=== PATIENT | female | born 1970 | race Caucasian/White ===

== ENCOUNTER → 2017-11-04 15:19 | Outpatient (CLI) | payer BC, SELFPAY ==
[2017-11-04 16:35] LABS: Hemoglobin A1c 6.1 % (4.2-6.3)
[2017-11-04 16:36] LABS: Thyroid Stim Hormone (TSH) 2.85 uIU/mL (0.358-3.74)
== END ==
PROVIDERS: Family Provider Internal Medicine; PCP Internal Medicine; Visit Provider Clinical Nurse Specialist
DX: R73.09 Other abnormal glucose (principal); R63.5 Abnormal weight gain
CPT/HCPCS: 36415; 83036; 84443

== ENCOUNTER → 2017-11-30 12:25 | Outpatient (CLI) | payer OTHER, SELFPAY ==
--- NOTE | 2017-11-30 12:31 | HPBI_ITS ---
MAMMOGRAPHY - BILATERAL SCREENING REASON FOR EXAM: Female, 47 years old. Routine annual screening examination. PERTINENT HISTORY: Aunt with breast cancer. TECHNIQUE: Digital bilateral breast jane (3D mammographic acquisition) in the CC and MLO projections. 2-D mediolateral oblique (MLO) and craniocaudad (CC) views of both breasts were obtained. CAD: Full Field Digital Mammography with Computer Added Detection was performed. COMPARISON: No comparison mammograms available at this time. If any prior films become available, an addendum to this report can be generated. FINDINGS: Breast Composition: There are scattered areas of fibroglandular density. There are no dominant masses or suspicious calcifications. No other significant abnormalities are identified. HPBI/SCREENING MAMM (CAD), BILAT IMPRESSION: Negative screening mammogram. Yearly followup mammogram recommended. (A) ASSESSMENT CATEGORY: BIRADS Category 1: Negative. A letter regarding these results will be sent to the patient by the facility within 30 days. Approximately 10% of breast cancers are not detected by mammography. A normal mammogram should not delay biopsy of a clinically suspicious abnormality. [id number] Electronically Signed: Tom Pena MD at 20:13 EST Tel [phone], Service support ,
== END ==
PROVIDERS: Family Provider Internal Medicine; PCP Internal Medicine; Visit Provider Internal Medicine
DX: Z12.31 Encounter for screening mammogram for malignant neoplasm of breast (principal)
CPT/HCPCS: 77063; 77067

== ENCOUNTER → 2018-07-08 09:14 | Outpatient (CLI) | payer OTHER, SELFPAY ==
[2018-07-08 10:31] LABS: Hemoglobin A1c 6.2 % (4.2-6.3)
[2018-07-08 10:37] LABS: Anion Gap 6 (5-15); BUN 10 mg/dL (7-18); BUN/Creat Ratio 13.5 RATIO (10-20); Calcium,Total 8.5 mg/dL (8.5-10.1); Chloride 104 mmol/L (98-107); Creatinine, Serum 0.74 mg/dL (0.55-1.02); EST Glomerular Filtration Rate 90 mL/min (>60); Est Glom Filt Rate - Afr Amer 108 mL/min (>60); Glucose 101 mg/dL (74-106); Potassium 3.6 mmol/L (3.5-5.1); Sodium Level 140 mmol/L (136-145)
== END ==
PROVIDERS: Family Provider Internal Medicine; PCP Internal Medicine; Referring Provider Internal Medicine; Visit Provider Internal Medicine
DX: R73.01 Impaired fasting glucose (principal); E28.2 Polycystic ovarian syndrome; I10 Essential (primary) hypertension
CPT/HCPCS: 36415; 80048; 83036

== ENCOUNTER → 2018-08-18 20:13 | Outpatient (CLI) | payer OTHER, SELFPAY | PROVIDERS: Family Provider Internal Medicine; PCP Internal Medicine; Visit Provider Internal Medicine | DX: G47.30 Sleep apnea, unspecified (principal); G47.10 Hypersomnia, unspecified; E66.9 Obesity, unspecified | CPT/HCPCS: 95811 ==

== ENCOUNTER → 2018-11-14 20:16 | Outpatient (CLI) | payer OTHER, SELFPAY | PROVIDERS: Family Provider Internal Medicine; PCP Internal Medicine; Referring Provider Internal Medicine; Visit Provider Internal Medicine | DX: G47.33 Obstructive sleep apnea (adult) (pediatric) (principal) | CPT/HCPCS: 95811 ==

== ENCOUNTER 2019-01-17 13:19 | Emergency (ER) | payer OTHER, SELFPAY ==
[2019-01-17 13:19] VITALS: BP 188/106; PULSE 103; RESP 18; TEMP 37; O2SAT 100; BMI 52.2
--- NOTE | 2019-01-17 13:38 | EKG12_ITS ---
Test Reason : DIZZNESS Blood Pressure : / mmHG Vent. Rate : 086 BPM Atrial Rate : 086 BPM P-R Int : 162 ms QRS Dur : 094 ms QT Int : 368 ms P-R-T Axes : 039 051 045 degrees QTc Int : 440 ms Normal sinus rhythm Normal ECG Confirmed by FABIANO GASCA, WANDA ([id number]), avid editor AMARI VALENTINE ([id number]) on 01/23/2019 4:21:47 PM Referred By: JANETTE Confirmed By:WANDA MARIO MD
[2019-01-17 14:00] VITALS: BP 160/73; PULSE 83; RESP 16; O2SAT 99
[2019-01-17 14:10] LABS: Absolute Lymphocyte Count 1.84 X10^3/ul (0.83-4.51); Absolute Neutrophil Count 4.8 X10^3/uL (2.0-7.7); Basophil# 0.04 X10^3/uL; Basophil% 0.5 % (0-1); Eosinophil# 0.23 X10^3/uL; Eosinophils% 3.1 % (0-5); Hemoglobin 14.4 g/dl (12.0-15.0); Lymphocyte # 1.84 X10^3/ul (4.0); Lymphocyte % 24.6 % (19-41); Mean Corp Hgb Conc 33.5 g/gl (32-36); Mean Corpuscular Hgb 28.9 pg (27.0-32.0); Mean Corpuscular Volume 86.3 fL (81-99); Mean Platelet Vol. 9.8 fl (6.2-12.0); Monocyte# 0.56 X10^3/uL; Monocyte% 7.5 % (0-10); Neutrophil # 4.76 X10^3/uL (2.7-7.7); Neutrophil % 63.8 % (47-70); Platelet Count 275 K/mm3 (150-450); RBC Distribution Width CV 13.4 % (11.6-14.6); RBC Distribution Width SD 41.6 fl (35.1-43.9); Red Blood Count 4.98 M/mm3 (4.2-5.4); White Blood Count 7.5 K/mm3 (4.4-11.0)
[2019-01-17 14:16] LABS: POSITIVE COUNT NO; POSITIVE DIFFERENTIAL NO; POSITIVE MORPHOLOGY NO
[2019-01-17 14:28] LABS: Anion Gap 6 (5-15); BUN 10 mg/dL (7-18); Calcium,Total 9.2 mg/dL (8.5-10.1); Chloride 105 mmol/L (98-107); Creatinine, Serum 0.83 mg/dL (0.55-1.02); EST Glomerular Filtration Rate 78 mL/min (>60); Est Glom Filt Rate - Afr Amer 95 mL/min (>60); Estimated Creatinine Clearance 73.13 ml/min; Glucose 96 mg/dL (74-106); Potassium 3.5 mmol/L (3.5-5.1); Sodium Level 139 mmol/L (136-145)
[2019-01-17 14:39] VITALS: BP 159/83; PULSE 74; RESP 16; O2SAT 99
--- NOTE | 2019-01-17 14:40 | ED.VISSUMM ---
- ER Visit Summary Date of Service: 01/17/19 Chief Complaint: Dizziness History of Present Illness: The patient is a 48 F with dizziness. This started today at work. Patient felt dizzy and lightheaded. She felt like her face was flushed. She had similar symptoms in the past of high blood pressure. She checked her blood pressure and it was 189/104. She has a history of hypertension and takes hydrochlorothiazide. She says she has been compliant. She said she is also compliant with her sleep apnea treatment. Patient denies alcohol, tobacco, or drug use. No other complaints. Physical Examination: Afebrile and vital signs unremarkable except for a blood pressure of 188/106. The patient appears in no acute distress. HEENT exam unremarkable. Cranial nerves grossly intact. Heart regular. Lungs clear. Extremities nontender with no edema. Normal strength and sensation. Test Results: EKG showed sinus rhythm at a rate of 86. CBC, BMP, and troponin normal. Emergency Department Course and Treatment: Patient was observed in the ED. Her repeat blood pressure without intervention was 160/73. Symptoms improved. No medical intervention was necessary. Her workup was unremarkable. There is nothing to suggest stroke or aortic pathology. CT brain and chest x-ray were not ordered. Patient was advised that she may be managed as an outpatient. She will check in with her PCP for blood pressure recheck. She may need additional treatment for hypertension. Return right away for any new signs or symptoms. Treatment Plan: As above Disposition: Discharge Impression: 1. Hypertension This note was generated with [employer] dictation software. It may contain incorrect words, spelling, and punctuation that were not noted in review of the chart prior to signing ED Disposition - Plan for ED Patient: Referrals: Lucy Pal MD [Primary Care Provider] -
--- NOTE | 2019-01-17 14:43 | ED.DEP ---
ED Disposition - Plan for ED Patient: Instructions: ED HTN Established Referrals: Lucy Pal MD [Primary Care Provider] -
== END 2019-01-17 15:09 | disposition home or self-care (01) ==
PROVIDERS: Emergency Provider Emergency Medicine; Family Provider Internal Medicine; PCP Internal Medicine
DX: I10 Essential (primary) hypertension (principal)
CPT/HCPCS: 80048; 84484; 85025; 93005; 99283; A4216

== ENCOUNTER → 2019-01-25 15:21 | Outpatient (CLI) | payer OTHER, SELFPAY ==
[2019-01-17 13:19] VITALS: BMI 52.2
[2019-01-25 16:59] LABS: Anion Gap 6 (5-15); BUN 13 mg/dL (7-18); BUN/Creat Ratio 15.9 RATIO (10-20); Calcium,Total 9.2 mg/dL (8.5-10.1); Chloride 102 mmol/L (98-107); Creatinine, Serum 0.82 mg/dL (0.55-1.02); EST Glomerular Filtration Rate 80 mL/min (>60); Est Glom Filt Rate - Afr Amer 97 mL/min (>60); Glucose 110 mg/dL (74-106); Magnesium 2.1 mg/dL (1.6-2.6); Potassium 3.3 mmol/L (3.5-5.1); Sodium Level 138 mmol/L (136-145); Thyroid Stim Hormone (TSH) 2.34 uIU/mL (0.358-3.74)
== END ==
PROVIDERS: Family Provider Internal Medicine; PCP Internal Medicine; Referring Provider Internal Medicine; Visit Provider Internal Medicine
DX: R00.2 Palpitations (principal)
CPT/HCPCS: 36415; 80048; 83735; 84443

== ENCOUNTER → 2019-02-03 13:17 | Outpatient (CLI) | payer OTHER, SELFPAY ==
[2019-01-17 13:19] VITALS: BMI 52.2
--- NOTE | 2019-02-03 13:23 | STEWCON_ITS ---
Reason For Study: CHEST HEAVINESS Stress Results Protocol: Stress Echocardiogram Maximum Predicted HR: 174 bpm Target HR: 148 bpm % Maximum Predicted HR: 89 % DurationHeart Rate Stage (mm:ss) (bpm) BP Comment BASELINE 87 142/763 CC DILUTED DEFINITY USED DURING STRESS DIXIE PROTOCOL- STAGE 1 3:00 118 172/88 DIXIE PROTOCOL- STAGE 2 3:00 137 204/92FUZZY FEELING IN FOREHEAD AREA DIXIE PROTOCOL- STAGE 3 2:17 155 220/88SL SOB, NO CP RECOVERY 100 148/80 Stress Duration: 8:17 mm:ss Maximum Stress HR: 155 bpm METS: 10 Baseline Echocardiogram Findings Stress Echo Wall motion Data Resting WM Intermediate WM Stress WM Resting Wall Motion Wall Motion Stress All segments Normal. All segments Hyperkinetic. Ejection Fraction 65 %. Ejection Fraction 75 %. Stress Results Heart rate response: Appropriate Blood pressure response to exercise: Resting hypertension-exaggerated response Arrhythmias: Rare PVC during exercise Functional capacity: Average Stopped: Secondary to dyspnea and fatigue. EKG Data Baseline ECG: Normal sinus rhythm. Peak stress ECG: No obvious ECG changes. Symptoms with Stress No complaint of chest discomfort during exercise or recovery. Interpretation Summary Negative (adequate) Stress Echocardiogram The study was technically difficult. Contrast injection was performed. Ordering Physician: LONA Carrion Referring Physician: LONA Carrion Performed By: Laurel Saunders, STEPHAN, RVT
== END ==
PROVIDERS: Family Provider Internal Medicine; PCP Internal Medicine; Referring Provider Nurse Practitioner Primary Care; Visit Provider Nurse Practitioner Primary Care
DX: R07.89 Other chest pain (principal); R00.2 Palpitations; I10 Essential (primary) hypertension
CPT/HCPCS: 93017; 93350; Q9957; A4216; C8928

== ENCOUNTER → 2019-02-11 08:52 | Outpatient (CLI) | payer OTHER, SELFPAY ==
[2019-01-17 13:19] VITALS: BMI 52.2
[2019-02-11 10:17] LABS: Anion Gap 2 (5-15); BUN 13 mg/dL (7-18); BUN/Creat Ratio 16.4 RATIO (10-20); Calcium,Total 8.6 mg/dL (8.5-10.1); Chloride 105 mmol/L (98-107); Creatinine, Serum 0.79 mg/dL (0.55-1.02); EST Glomerular Filtration Rate 83 mL/min (>60); Est Glom Filt Rate - Afr Amer 100 mL/min (>60); Glucose 105 mg/dL (74-106); Potassium 3.6 mmol/L (3.5-5.1); Sodium Level 139 mmol/L (136-145)
== END ==
PROVIDERS: Family Provider Internal Medicine; PCP Internal Medicine; Referring Provider Nurse Practitioner Primary Care; Visit Provider Nurse Practitioner Primary Care
DX: E87.6 Hypokalemia (principal)
CPT/HCPCS: 36415; 80048

== ENCOUNTER → 2019-07-18 10:58 | Outpatient (CLI) | payer OTHER, SELFPAY ==
[2019-07-18 12:17] LABS: Hemoglobin A1c 6.5 % (4.2-6.3)
[2019-07-18 12:23] LABS: Free T3 2.7 pg/mL (2.18-3.98); T4 Free Direct 0.86 ng/dL (0.76-1.46); Thyroid Stim Hormone (TSH) 3.13 uIU/mL (0.358-3.74)
== END ==
PROVIDERS: Family Provider Internal Medicine; PCP Internal Medicine; Referring Provider Internal Medicine; Visit Provider Internal Medicine
DX: I10 Essential (primary) hypertension (principal); R73.01 Impaired fasting glucose; E28.2 Polycystic ovarian syndrome; E66.01 Morbid (severe) obesity due to excess calories
CPT/HCPCS: 36415; 83036; 84439; 84443; 84481

== ENCOUNTER → 2020-07-18 16:27 | Outpatient (CLI) | payer OTHER, SELFPAY ==
[2020-07-18 18:32] LABS: Thyroid Stim Hormone (TSH) 2.98 uIU/mL (0.358-3.74)
[2020-07-18 21:53] LABS: Hemoglobin A1c 6.8 % (3.8-5.6)
== END ==
PROVIDERS: PCP Internal Medicine; Referring Provider Internal Medicine; Visit Provider Internal Medicine
DX: I10 Essential (primary) hypertension (principal); E66.01 Morbid (severe) obesity due to excess calories; Z68.43 Body mass index [BMI] 50.0-59.9, adult; R73.01 Impaired fasting glucose
CPT/HCPCS: 36415; 83036; 84443

== ENCOUNTER → 2021-07-19 07:06 | Outpatient (CLI) | payer OTHER, SELFPAY ==
[2021-07-19 08:01] LABS: Anion Gap 6 (5-15); BUN 8 mg/dL (7-18); Calcium,Total 8.6 mg/dL (8.5-10.1); Chloride 106 mmol/L (98-107); Cholesterol 140 mg/dL (200); Creatinine, Serum 0.72 mg/dL (0.55-1.02); EST Glomerular Filtration Rate 91 mL/min (>60); Est Glom Filt Rate - Afr Amer 110 mL/min (>60); Glucose 147 mg/dL (74-106); High Density Lipoprotein 46 mg/dL; Potassium 3.6 mmol/L (3.5-5.1); Sodium Level 140 mmol/L (136-145); Triglycerides 130 mg/dL; Very Low Density Lipoprotein 26 mg/dL (5-40)
== END ==
PROVIDERS: PCP Internal Medicine; Referring Provider Internal Medicine; Visit Provider Internal Medicine
DX: I10 Essential (primary) hypertension (principal)
CPT/HCPCS: 36415; 80048; 80061

== ENCOUNTER → 2021-07-30 16:11 | Outpatient (CLI) | payer OTHER, SELFPAY ==
[2021-07-30 18:13] LABS: Hemoglobin A1c 7.3 % (3.8-5.6)
== END ==
PROVIDERS: PCP Internal Medicine; Visit Provider Internal Medicine
DX: E11.9 Type 2 diabetes mellitus without complications (principal)
CPT/HCPCS: 36415; 83036

== ENCOUNTER 2022-01-09 14:46 | Outpatient (CLI) | payer BC, SELFPAY ==
[2022-01-09 16:38] LABS: Anion Gap 6 (5-15); BUN 13 mg/dL (7-18); BUN/Creat Ratio 15.5 RATIO (10-20); Calcium,Total 9.3 mg/dL (8.5-10.1); Chloride 105 mmol/L (98-107); Cholesterol 162 mg/dL (200); Creatinine, Serum 0.84 mg/dL (0.55-1.02); EST Glomerular Filtration Rate 77 mL/min (>60); Est Glom Filt Rate - Afr Amer 93 mL/min (>60); Glucose 122 mg/dL (74-106); High Density Lipoprotein 48 mg/dL; Potassium 3.6 mmol/L (3.5-5.1); Sodium Level 140 mmol/L (136-145); Triglycerides 181 mg/dL; Very Low Density Lipoprotein 36 mg/dL (5-40)
[2022-01-09 16:41] LABS: Hemoglobin A1c 6.7 % (3.8-5.6)
== END 2022-01-09 23:59 | disposition home or self-care (01) ==
LOC: LAB 14:48
PROVIDERS: PCP Internal Medicine; Referring Provider Internal Medicine; Visit Provider Internal Medicine
DX: E11.9 Type 2 diabetes mellitus without complications (principal)
CPT/HCPCS: 36415; 80048; 80061; 83036

== ENCOUNTER → 2022-09-28 | Outpatient (CLI) | payer BC, SELFPAY ==
[2022-09-28 09:40] LABS: Hemoglobin A1c 6.8 % (3.8-5.6)
== END | disposition home or self-care (01) ==
LOC: LAB 08:17
PROVIDERS: PCP Internal Medicine; Referring Provider Clinical Nurse Specialist; Visit Provider Clinical Nurse Specialist
DX: E88.81 Metabolic syndrome and other insulin resistance (principal); E66.01 Morbid (severe) obesity due to excess calories; Z68.43 Body mass index [BMI] 50.0-59.9, adult
CPT/HCPCS: 36415; 83036; 84443

== ENCOUNTER → 2023-05-13 | Outpatient (CLI) | payer BC, SELFPAY ==
[2023-05-13 12:31] LABS: Absolute Lymphocyte Count 3.18 X10^3/uL (0.83-4.51); Absolute Neutrophil Count 4.7 X10^3/uL (2.0-7.7); Basophil# 0.08 X10^3/uL; Basophil% 0.9 % (0-1); Eosinophil# 0.38 X10^3/uL; Eosinophils% 4.1 % (0-5); Hematocrit 39.4 % (37-47); Hemoglobin 13.1 g/dL (12.0-15.0); Lymphocyte # 3.18 X10^3/ul (0.83-4.51); Lymphocyte % 34.3 % (19-41); Mean Corp Hgb Conc 33.2 g/dL (32-36); Mean Corpuscular Hgb 29.9 pg (27.0-32.0); Mean Platelet Vol. 9.5 fl (6.2-12.0); Monocyte# 0.84 X10^3/uL; Monocyte% 9.1 % (0-10); NRBC Flagged by Analyzer 0 % (0-5); Neutrophil # 4.73 X10^3/uL (2.7-7.7); Neutrophil % 51.1 % (47-70); Platelet Count 322 K/mm3 (150-450); RBC Distribution Width CV 13.6 % (11.6-14.6); RBC Distribution Width SD 44.6 fl (35.1-43.9); Red Blood Count 4.38 M/mm3 (4.2-5.4); White Blood Count 9.3 K/mm3 (4.4-11.0)
[2023-05-13 13:00] LABS: ALB/GLOB Ratio 0.8 RATIO (0.9-2.4); AST(SGOT) 22 U/L (15-37); Alanine Aminotransfer ALT/SGPT 26 U/L (13-56); Albumin, Serum 3.4 g/dL (3.2-5.0); Alkaline Phosphatase 63 U/L (45-117); Anion Gap 5 (5-15); BUN 9 mg/dL (7-18); BUN/Creat Ratio 11.5 RATIO (10-20); Chloride 103 mmol/L (98-107); Cholesterol 155 mg/dL (200); Creatinine, Serum 0.78 mg/dL (0.55-1.02); EST Glomerular Filtration Rate 83 mL/min (>60); Est Glom Filt Rate - Afr Amer 100 mL/min (>60); Globulin 4.2 g/dL (2.2-4.2); Glucose 112 mg/dL (74-106); High Density Lipoprotein 48 mg/dL; Potassium 3.8 mmol/L (3.5-5.1); Protein, Total 7.6 g/dL (6.4-8.2); Sodium Level 137 mmol/L (136-145); Triglycerides 133 mg/dL; Very Low Density Lipoprotein 27 mg/dL (5-40)
== END | disposition home or self-care (01) ==
LOC: LAB 11:54
PROVIDERS: PCP Internal Medicine; Referring Provider Internal Medicine; Visit Provider Internal Medicine
DX: Z13.220 Encounter for screening for lipoid disorders (principal); E11.9 Type 2 diabetes mellitus without complications; Z51.81 Encounter for therapeutic drug level monitoring
CPT/HCPCS: 36415; 80053; 80061; 83036; 85025

== ENCOUNTER → 2023-06-04 | Outpatient (CLI) | payer BC, SELFPAY ==
--- NOTE | 2023-06-04 13:58 | BI_ITS ---
MAMMOGRAPHY - BILATERAL SCREENING REASON FOR EXAM: Female, 52 years old. Routine annual screening examination. PERTINENT HISTORY: Aunt with breast cancer. TECHNIQUE: Digital bilateral breast timmy (3D mammographic acquisition) in the CC and MLO projections. 2-D mediolateral oblique (MLO) and craniocaudad (CC) views of both breasts were obtained. CAD: Full Field Digital Mammography with Computer Added Detection was performed. COMPARISON: Comparison is made with prior study dated November 30, 2017. FINDINGS: Breast Composition: There are scattered areas of fibroglandular density. There are no dominant masses or suspicious calcifications. Stable benign-appearing bilateral axillary lymph nodes. No other significant abnormalities are identified. There has been no significant change since the prior study. BI/SCRN MAMM (CAD)W/TIMMY BILAT IMPRESSION: Stable bilateral screening mammogram. Yearly follow-up mammogram recommended. (A) ASSESSMENT CATEGORY: BIRADS Category 2: Benign. A letter regarding these results will be sent to the patient by the facility within 30 days. Approximately 10% of breast cancers are not detected by mammography. A normal mammogram should not delay biopsy of a clinically suspicious abnormality. [id number] Electronically Signed: Tom Pena MD at 12:09 EDT ,
== END | disposition home or self-care (01) ==
LOC: OPBI 13:57
PROVIDERS: PCP Internal Medicine; Referring Provider Internal Medicine; Visit Provider Internal Medicine
DX: Z12.31 Encounter for screening mammogram for malignant neoplasm of breast (principal); Z80.3 Family history of malignant neoplasm of breast
CPT/HCPCS: 77063; 77067

== ENCOUNTER 2023-07-23 06:20 | Day surgery (SDC) | payer BC, SELFPAY ==
[2023-07-23] VITALS (18 sets, daily range): BP systolic 73–119; BP diastolic 27–67; PULSE 60–71; RESP 14–20; TEMP 36.1–36.2; O2SAT 94–100; BMI 52.4
--- NOTE | 2023-07-23 | GASB_PTH ---
PATIENT: RU RESENDEZ LOC: EN U#:[id number] AGE/SX: 52/F ROOM: RE07/23/[address]: Dr. Collin Mcknight MD : 1970 BED: DIS: 07/23/2023 SPEC #: [id number] RECD: 07/23/23 13:44 STATUS: DENNIS JAVON #: [id number] THERESA: 07/23/23 00:[address]: Collin Mcknight DEPT: SURGICAL PATHOLOGY RECD BY: Charli Tejada ENTERED: 07/23/23 13:44 SP TYPE: Gastric Bx OTHR DR: Dr. Lucy Pal MD Tissues: A - Gastric mucous membrane B - Esophageal mucous membrane C - Esophageal mucous membrane D - Esophageal mucous membrane E - Sigmoid colon biopsy Procedures: Special Stain Group II Surgery Specimen Level IV Alcian Blue/PAS (control) HEADER OPERATION: Colonoscopy, EGD and biopsies and polypectomy PRE-OP DIAGNOSIS: Positive colorectal screening, GERD, dysphagia, heartburn TISSUE SUBMITTED: A - Gastric antrum, H. pylori and path, B - Distal esophageal mucosal nodules, C - Distal esophageal plaque, D - Z-line biopsy, E - Polyp at distal descending sigmoid colon MICROSCOPIC DIAGNOSIS A. Gastric antrum, biopsy: Mild gastritis. See microscopic description and comment. B. Distal esophageal mucosal nodules, biopsy: Fragments of gastroesophageal mucosa with moderate chronic inflammation. Intestinal metaplasia (goblet cell metaplasia) not identified. See comment. C. Distal esophageal plaque, biopsy: A fragment of squamous epithelium with mild chronic inflammation and focal parakeratosis. D. Z-line biopsy: Fragments of gastroesophageal mucosa with chronic inflammation. Intestinal metaplasia (goblet cell metaplasia) not identified. See comment. E. Polyp distal descending sigmoid colon, biopsy: A fragment of colonic mucosa, no pathologic diagnosis. SJ:sunday 07/26/2023 COMMENT A. The results of immunohistochemistry for Helicobacter pylori will be reported separately ([id number]). B. Increased number of eosinophils (~15 per high power field), consistent with eosinophilic esophagitis are noted. Alcian blue/PAS stain with matched control is used in the evaluation of the specimen. D. Alcian blue/PAS stain with matched control is used in the evaluation of the specimen. MICROSCOPIC DESCRIPTION Slides are reviewed. A. The specimen shows fragments of gastric mucosa with chronic inflammatory cell infiltrates in the lamina propria consisting of lymphocytes and plasma cells, consistent with mild chronic gastritis. GROSS DESCRIPTION A - Received in fixative is one container labeled with the patient's name and designated gastric antrum. The specimen consists of one irregular fragment of light mathis soft tissue that measures 0.5 x 0.5 x 0.1 cm. The specimen is totally submitted in one cassette. B - Received in fixative is one container labeled with the patient's name and designated distal esophagus. The specimen consists of multiple irregular fragments of light mathis soft tissue that in aggregate measure 0.3 x 0.2 x 0.1 cm. The specimen is totally submitted in one cassette. C - Received in fixative is one container labeled with the patient's name and designated distal esophageal plaque. The specimen consists of one irregular fragment of light mathis soft tissue that measures 0.5 x .2 x 0.1 cm. The specimen is totally submitted in one cassette. D - Received in fixative is one container labeled with the patient's name and designated Z-line biopsy. The specimen consists of multiple irregular fragments of light mathis soft tissue that in aggregate measure 0.5 x 0.2 x 0.1 cm. The specimen is totally submitted in one cassette. E - Received in fixative is one container labeled with the patient's name and designated polyp distal descending sigmoid colon. The specimen consists of one irregular fragment of light mathis soft tissue that measures 0.3 x 0.2 x 0.1 cm. The specimen is totally submitted in one cassette. / AM:sunday 07/23/2023 TC:3 CPT: 96058 x5, 84863 x2
[2023-07-23] MEDS: Lactated Ringers 1,000 ML 15 ML IV ×2 (07:06→09:32)
--- NOTE | 2023-07-23 07:19 | PCM.HP.BLA ---
History and Physical Date of Service: 07/05/23 MR#: [id number] Acct: [id number] Name: RU RESENDEZ Rep #: [id number] : 1970 Provider: Dr. Collin Mcknight MD Age/Sex: 52/F Location: [facility] Status: Signed Intake Intake Visit Reasons: POSITIVE COLOGUARD Chief Complaint: positive cologuard Canopy Inspector Required: No Is patient in pain?: No Allergies azithromycin Allergy (Verified 07/05/23 09:32) Itchingchlorhexidine Adverse Reaction (Verified 07/05/23 09:32) Itching Medications hydrochlorothiazide 12.5 mg tablet 25 mg PO QAM 12/22/17 [History Confirmed 12/22/17] albuterol sulfate 90 mcg/actuation aerosol inhaler (Ventolin HFA) 2 puff inhalation Q6H PRN 07/05/23 [History Confirmed 07/05/23] losartan 50 mg tablet 50 mg PO DAILY 07/05/23 [History Confirmed 07/05/23] magnesium oxide 400 mg PO DAILY 07/05/23 [History Confirmed 07/05/23] metformin 500 mg tablet 500 mg PO DAILY 07/05/23 [History Confirmed 07/05/23] multivitamin 1 tab PO DAILY 07/05/23 [History Confirmed 07/05/23] propranolol 20 mg tablet 20 mg PO BID 07/05/23 [History Confirmed 07/05/23] PFSH Medical History (Updated 07/05/23 @ 17:[address] Collin Mcknight MD) Asthma Diabetes HTN (hypertension) Surgical History (Updated 07/05/23 @ 09:31 by Lala Peck) History of cholecystectomy History of hysterectomy History of tonsillectomy and adenoidectomy Hx of section S/P tonsillectomy and adenoidectomy Family History (Updated 07/05/23 @ 09:32 by Lala Peck) Father Diabetes HypertensionMother HypertensionAunt Breast cancer Social History Smoking Status: Former smoker alcohol intake: never HPI HPI HPI: Patient is a 52-year-old female who presents for need to schedule diagnostic colonoscopy secondary to positive Cologuard testing. They are referred for surgical consultation from Dr. Pal. Patient has not had prior colonoscopy. Patient has no personal history of inflammatory bowel disease or diverticulitis. They describe their bowel habits as generally normal but occasionally punctuated with periods of diarrhea which they state seems to correlate well with use of Glucophage for her diabetes. They have approximately 1-2 per day and generally had minimal toilet time. They have not noticed recent bleeding or dark stools. Patient has no family history of colon cancer, inflammatory bowel disease, or diverticulitis, but she does relate that her maternal uncle was diagnosed with esophageal cancer in his 50s and ultimately succumbed to this diagnosis. 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 The patient's weight is stable. The patient is not prescribed anticoagulants/blood thinners, however, she admits to taking aspirin regularly for headaches?generally 3-4 times per week. Relevant prior abdominal surgical history includes: Cholecystectomy, hysterectomy, and sections Patient does have a significant history of GERD and heartburn. She states she experiences each of these at least monthly. However, she follows that up staying she takes Tums at least once per week. She experiences the symptoms particularly intensely when she tries to lie on her stomach. Given her family history of esophageal cancer she is particularly interested in undergoing EGD evaluation. Beyond heartburn and reflux she does complain of some experiences where things become stuck while eating. ROS General General: No weight change, appetite, fatigue, colon cancer, breast cancer or weakness HEENT HEENT: No difficulty swallowing, eye injury, eye surgery, swollen glands or hoarseness Endo Endocrine: Yes diabetes mellitus; No thyroid disease, thyroid cancer, Hair loss, heat intolerance or cold intolerance Skin Skin: No rash or changing moles Breast Breast: No left breast lump, right breast lump, nipple discharge, breast pain, abnormal mammogram, abnormal US or breast enlargement Musc Musculoskeletal: No back problems, arthritis, rheumatoid arthritis, gout or joint pain Cardio Cardiovascular: Yes high blood pressure; No murmur, pacemaker, heart disease, atrial fibrillation, heart attack, heart stent, palpitations, shortness of breat with exertion or chest pain Psych Psychiatric: No depression, anxiety or hearing voices Resp Respiratory: No shortness of breath, Yes sleep apnea, No cough, No COPD, Yes asthma, No emphysema and No wheezing Gastro Gastrointestinal: No abdominal pain, No nausea or vomiting, No diarrhea, No constipation, No blood in stool, Yes acid reflux, No hemorrhoids, No ulcers, No gallbladder problem and No black,tarry stools Brian Hematologic: No blood thinners, No blood disorders, No bleeding, No anemia and No blood clots Neuro Neurologic: No system reviewed and no additional complaints, except as documented, No as per HPI, No abnormal gait, No abnormal hearing, No abnormal movements, No abnormal speech, No behavioral changes, No burning sensations, No confusion, No convulsions, No disequilibrium, No dizziness, No localized weakness, No frequent falls, No headache(s), No lack of coordination, No loss of vision, No memory loss, No numbness, No other visual disturbances, No radicular pain, No restless legs, No sensory deficit, No syncope, No tingling, No tremor(s), No weakness and No other Exam Const General: cooperative, comfortable and no acute distress Orientation: alert, awake and oriented x3 GI Other: Morbidly obese, well-healed port site incisions, no visible herniation, nondistended, soft, nontender to palpation x4 quadrants (patient remarks of occasional/infrequent right upper quadrant discomfort during this exam) Assessment and Plan Assessment and Plan (1) Positive colorectal cancer screening using Cologuard test: Status: Acute Comment: This is a 52-year-old female with no prior colonic screening who presents for discussion of diagnostic colonoscopy after recent positive Cologuard testing. She denies any concerning features of her bowel function presently. She suspects that she may have experienced some bleeding in response to regular aspirin use for headaches. We have discussed that this could also be secondary to polyp or colonic neoplasm formation. Patient expresses understanding and we will plan to proceed with 2-day bowel prep and diagnostic colonoscopy. Plan: Plan will be to complete colonoscopy on first mutually agreeable date under local MAC. Pre-procedure prep discussed and paper instructions provided. Patient is also made aware that she will need to have a full service vending driver with her the day of the procedure. (2) Chronic GERD: Status: Chronic Comment: Patient describes rather infrequent symptoms of GERD, but also complains of heartburn and dysphagia. She is somewhat paranoid about her risk for esophageal cancer given this diagnosis and her paternal uncle. Plan: Diagnostic EGD along with colonoscopy (3) Family history of esophageal cancer: Status: Acute Comment: Previously discussed Plan: Add diagnostic EGD (4) Heartburn: Status: Acute Comment: Previously discussed Plan: Add diagnostic EGD (5) Dysphagia: Status: Acute Comment: Patient describes food becoming stuck in frequently. Alongside of her other complaints of GERD, heartburn, and family history of esophageal cancer find it reasonable to pursue diagnostic EGD. Plan: Add diagnostic EGD I have examined the patient and the H&P has been reviewed. There are no clinical changes since date of exam. She confirms that she has completed her prep in anticipation of today's procedure and that her output is now clear. She denies any significant troubles with dysphagia in the interval since we last saw 1 another in clinic. Her abdomen remains soft on exam this morning. Neither she nor her spouse have any further questions so we will now proceed to the endoscopy suite for planned EGD and colonoscopy as discussed above.
--- NOTE | 2023-07-23 07:30 | IMM_PTH ---
PATIENT: RU RESENDEZ LOC: EN U#:[id number] AGE/SX: 52/F ROOM: RE07/23/[address]: Dr. Collin Mcknight MD : 1970 BED: DIS: 07/23/2023 SPEC #: [id number] RECD: 07/23/23 14:25 STATUS: DENNIS REJuana #: [id number] THERESA: 07/23/23 07:[address]: Collin Mcknight DEPT: IMMUNOHISTOCHEMISTRY RECD BY: Darcie Ziegler ENTERED: 07/23/23 14:25 SP TYPE: IMMUNO OTHR DR: Dr. Lucy Pal MD Tissues: A - Stomach, NOS Procedures: H Pylori (initial) PHYSICIAN & INSTITUTION [place] [id number] SPECIMEN INFORMATION: Tissue Source: A - Gastric antrum Clinical Info: Positive colorectal mucosal nodules, dysphagia, heartburn Specimen Number: [id number] CPT code: 88511 METHODOLOGY: Deparaffinized sections of prefer/formalin-fixed tissue or PAP/DQ stained slides are incubated with monoclonal/polyclonal antibodies/oligonucleotide probes. Localization is made via biotin free immunoperoxidase method. Appropriate controls are performed and reacted as expected. Results on target cell population are indicated in the following table: RESULTS: ANTIBODY / CLONE RESULT Block A H Pylori (polyclonal) negative These tests were developed and their performance characteristics determined by [facility]. They may not have been cleared or approved by the U.S. Food and Drug Administration. The FDA has determined that such clearance or approval is not necessary. The above immunohistochemical/dualISH markers are ordered and reviewed by the Pathologist. INTERPRETATION: A. Gastric antrum, biopsy: Negative for Helicobacter pylori organisms. MUSA:sunday 07/26/2023
[2023-07-23 07:47] LABS: Bedside Glucose 141 mg/dL (74-106)
--- NOTE | 2023-07-23 08:40 | OP.EGD_ITS ---
Patient Name: Danielle Oneill Procedure Date: 07/23/2023 7:19 AM Date of : 1970 Age: 52 Procedure: Upper GI endoscopy Indications: Gastro-esophageal reflux disease Providers: Collin Mcknight MD Referring MD: Lucy Pal Medicines: See the Anesthesia note for documentation of the administered medications Patient Profile: Refer to note in patient chart for documentation of history and physical. Patient has symptoms of chronic dysphagia and chronic heartburn. Complications: No immediate complications. Estimated blood loss: Minimal. Procedure: Pre-Anesthesia Assessment: - The heart rate, respiratory rate, oxygen saturations, blood pressure, adequacy of pulmonary ventilation, and response to care were monitored throughout the procedure. After obtaining informed consent, the endoscope was passed under direct vision. Throughout the procedure, the patient's blood pressure, pulse, and oxygen saturations were monitored continuously. The Colonoscope was introduced through the mouth, and advanced to the third part of duodenum. The upper GI endoscopy was accomplished without difficulty. The patient tolerated the procedure well. Scope In: 7:37:39 AM Scope Out: 7:54:56 AM Total Procedure Duration Time 0 hours 17 minutes 17 seconds Findings: No gross lesions were noted in the entire examined duodenum. No biopsies or other specimens were collected for this exam. Localized mildly erythematous mucosa without bleeding was found in the gastric antrum. Biopsies were taken with a cold forceps for histology. Biopsies were taken with a cold forceps for Helicobacter pylori testing. Estimated blood loss was minimal. A small hiatal hernia was present. No biopsies or other specimens were collected for this exam. The Z-line was irregular and was found 38 cm from the incisors. Biopsies were taken with a cold forceps for histology. Estimated blood loss was minimal. A single 3 mm mucosal nodule with a localized distribution was found at the gastroesophageal junction. Biopsies were taken with a cold forceps for histology. Estimated blood loss was minimal. Multiple 5 mm plaques were found at the gastroesophageal junction. Biopsies were taken with a cold forceps for histology. Estimated blood loss was minimal. The exam was otherwise without abnormality. Impression: - No gross lesions in the entire examined duodenum. No specimens collected. - Erythematous mucosa in the antrum. Biopsied. - Small hiatal hernia. No specimens collected. - Z-line irregular, 38 cm from the incisors. Biopsied. - Mucosal nodule found in the esophagus. Biopsied. - Multiple plaques at the gastroesophageal junction. Biopsied. - The examination was otherwise normal. Recommendation: - Discharge patient to home (via wheelchair). - Resume previous diet today. - Use Protonix (pantoprazole) 40 mg PO daily today. - Await pathology results. - Telephone my office for pathology results in 1 week. - Continue present medications. Procedure Code(s): --- Professional --- 26231, Esophagogastroduodenoscopy, flexible, transoral; with biopsy, single or multiple Diagnosis Code(s): --- Professional --- K31.89, Other diseases of stomach and duodenum K44.9, Diaphragmatic hernia without obstruction or gangrene K22.89, Other specified disease of esophagus K21.9, Gastro-esophageal reflux disease without esophagitis CPT copyright 2021 [employer]. All rights reserved. The codes documented in this report are preliminary and upon customs brokerage agent review may be revised to meet current compliance requirements. Collin Mcknight MD 07/23/2023 8:40:03 AM This report has been signed electronically. Number of Addenda: 0 Note Initiated On: 07/23/2023 7:19 AM
--- NOTE | 2023-07-23 08:40 | OP.CCLET_ITS ---
07/23/2023 Lucy Pal [address] [place] [address] Re : Upper GI endoscopy procedure for [facility] Dear Dr. Pal This procedure was performed on Sunday, July 23, 2023. My impressions and recommendations are as follows: Impressions : - No gross lesions in the entire examined duodenum. No specimens collected. - Erythematous mucosa in the antrum. Biopsied. - Small hiatal hernia. No specimens collected. - Z-line irregular, 38 cm from the incisors. Biopsied. - Mucosal nodule found in the esophagus. Biopsied. - Multiple plaques at the gastroesophageal junction. Biopsied. - The examination was otherwise normal. Recommendations : - Discharge patient to home (via wheelchair). - Resume previous diet today. - Use Protonix (pantoprazole) 40 mg PO daily today. - Await pathology results. - Telephone my office for pathology results in 1 week. - Continue present medications. My findings are described in the full procedure note, which is enclosed. If I can be of further assistance, please feel free to contact me at Doctor phone number(s): , Work: . Sincerely, Collin Mcknight MD 07/23/2023 8:40:03 AM This report has been signed electronically.
--- NOTE | 2023-07-23 08:45 | OP.COLON_ITS ---
Patient Name: Danielle Oneill Procedure Date: 07/23/2023 7:55 AM Date of : 1970 Age: 52 Procedure: Colonoscopy Indications: Positive Cologuard test Providers: Collin Mcknight MD Referring MD: Lucy Pal Medicines: See the Anesthesia note for documentation of the administered medications Patient Profile: Refer to note in patient chart for documentation of history and physical. Patient has symptoms of chronic dysphagia and chronic heartburn. Last Colonoscopy: none. The patient's first colonoscopy is today. Complications: No immediate complications. Estimated blood loss: Minimal. Procedure: Pre-Anesthesia Assessment: - The heart rate, respiratory rate, oxygen saturations, blood pressure, adequacy of pulmonary ventilation, and response to care were monitored throughout the procedure. After I obtained informed consent, the scope was passed under direct vision. Throughout the procedure, the patient's blood pressure, pulse, and oxygen saturations were monitored continuously. The Colonoscope was introduced through the anus and advanced to the cecum, identified by appendiceal orifice and ileocecal valve. The colonoscopy was somewhat difficult due to a tortuous colon and the patient's oxygen desaturation. Successful completion of the procedure was aided by administering oxygen. The patient tolerated the procedure fairly well. The quality of the bowel preparation was adequate to identify polyps greater than 5 mm in size. Scope In: 7:58:53 AM Scope Withdrawal Time 0 hours 15 minutes 38 seconds Scope Out: 8:28:07 AM Total Procedure Duration Time 0 hours 29 minutes 14 seconds Findings: Skin tags were found on perianal exam. A 3 mm polyp was found in the sigmoid colon. The polyp was sessile. Biopsies were taken with a cold forceps for histology. Estimated blood loss was minimal. The exam was otherwise without abnormality on direct and retroflexion views. Impression: - Perianal skin tags found on perianal exam. - One 3 mm polyp in the sigmoid colon. Biopsied. - The examination was otherwise normal on direct and retroflexion views. Recommendation: - Discharge patient to home (via wheelchair). - Resume previous diet today. - Continue present medications. - Await pathology results. - Repeat colonoscopy date to be determined after pending pathology results are reviewed for surveillance based on pathology results. - Telephone my office for pathology results in 1 week. Procedure Code(s): --- Professional --- 21064, Colonoscopy, flexible; with biopsy, single or multiple Diagnosis Code(s): --- Professional --- D12.5, Benign neoplasm of sigmoid colon K64.4, Residual hemorrhoidal skin tags R19.5, Other fecal abnormalities CPT copyright 2021 [employer]. All rights reserved. The codes documented in this report are preliminary and upon certified professional coder review may be revised to meet current compliance requirements. Collin Mcknight MD 07/23/2023 8:45:23 AM This report has been signed electronically. Number of Addenda: 0 Note Initiated On: 07/23/2023 7:55 AM
--- NOTE | 2023-07-23 08:46 | OP.CCLET_ITS ---
07/23/2023 Lucy Pal [address] [place] [address] Re : Colonoscopy procedure for [facility] Dear Dr. Pal This procedure was performed on Sunday, July 23, 2023. My impressions and recommendations are as follows: Impressions : - Perianal skin tags found on perianal exam. - One 3 mm polyp in the sigmoid colon. Biopsied. - The examination was otherwise normal on direct and retroflexion views. Recommendations : - Discharge patient to home (via wheelchair). - Resume previous diet today. - Continue present medications. - Await pathology results. - Repeat colonoscopy date to be determined after pending pathology results are reviewed for surveillance based on pathology results. - Telephone my office for pathology results in 1 week. My findings are described in the full procedure note, which is enclosed. If I can be of further assistance, please feel free to contact me at Doctor phone number(s): , Work: . Sincerely, Collin Mcknight MD 07/23/2023 8:45:23 AM This report has been signed electronically.
--- NOTE | 2023-07-23 10:00 | SUR.PHASEII ---
PATIENT IS A LITTLE DIZZY STILL. I PUT THE BED UP A SMALL AMOUNT AND SHE IS SIPPING HER COKE.
[2023-07-23 11:27] LABS: Bedside Glucose 174 mg/dL (74-106)
== END 2023-07-23 11:14 | disposition home or self-care (01) ==
LOC: EN 06:21 → AC 06:22
PROVIDERS: PCP Internal Medicine; Referring Provider Internal Medicine; Visit Provider Surgery
PROC: 0DJD8ZZ Inspection of Lower Intestinal Tract, Via Natural or Artificial Opening Endoscopic (ICD-10-PCS; CPT 45378; principal; 2023-07-23 07:25)
DX: R19.5 Other fecal abnormalities (principal); E11.9 Type 2 diabetes mellitus without complications; K44.9 Diaphragmatic hernia without obstruction or gangrene; I10 Essential (primary) hypertension; Z80.0 Family history of malignant neoplasm of digestive organs; Z87.891 Personal history of nicotine dependence; R19.7 Diarrhea, unspecified; R13.10 Dysphagia, unspecified; K64.4 Residual hemorrhoidal skin tags; D12.5 Benign neoplasm of sigmoid colon; K31.89 Other diseases of stomach and duodenum; K22.89 Other specified disease of esophagus
CPT/HCPCS: 45380; 43239; 82962; 88305; 88313; 88342; J7120; J2405

== ENCOUNTER → 2023-10-08 | Outpatient (CLI) | payer BC, SELFPAY ==
--- NOTE | 2023-10-08 | IMM_PTH ---
PATHOLOGY RESULTS PATIENT: UR RESENDEZ LOC: [facility] U#:[id number] AGE/SX: 52/F ROOM: RE10/08/[address]: Dr. Matthew Stahl MD : 1970 BED: DIS: 10/08/2023 SPEC #: [id number] RECD: 10/13/23 14:37 STATUS: DENNIS REQ #: [id number] THERESA: 10/08/23 00:[address]: Matthew Stahl DEPT: IMMUNOHISTOCHEMISTRY RECD BY: Darcie Ziegler ENTERED: 10/13/23 14:39 SP TYPE: IMMUNO OTHR DR: Dr. Lucy Pal MD Tissues: Skin of arm Procedures: SMA (add) DESMIN (add) MELAN-A (add) CD68 (ADD) Vimentin (initial) S-100 (add) PHYSICIAN & INSTITUTION [place] [address] SPECIMEN INFORMATION: Tissue Source: D - Left arm lesion Clinical Info: Left arm lesion Specimen Number: [id number] CPT code: 59864, 63335 x5 METHODOLOGY: Deparaffinized sections of prefer/formalin-fixed tissue or PAP/DQ stained slides are incubated with monoclonal/polyclonal antibodies/oligonucleotide probes. Localization is made via biotin free immunoperoxidase method. Appropriate controls are performed and reacted as expected. Results on target cell population are indicated in the following table: RESULTS: ANTIBODY / CLONE RESULT Block D Vimentin (V9) positive CD68 (KP-1) positive, focal Actin (1A4) negative Desmin (CE-R-11) negative Melan A (A103) negative S-100 (4C4.9) negative These tests were developed and their performance characteristics determined by [facility]. They may not have been cleared or approved by the U.S. Food and Drug Administration. The FDA has determined that such clearance or approval is not necessary. The above immunohistochemical/dualISH markers are ordered and reviewed by the Pathologist. INTERPRETATION: D. Left arm lesion, excisional biopsy: Dermatofibroma. SJ:sunday 10/14/2023
--- NOTE | 2023-10-08 14:00 | LES_PTH ---
PATHOLOGY RESULTS PATIENT: RU RESENDEZ [facility] U#:[id number] AGE/SX: 52/F ROOM: RE10/08/[address]: Dr. Matthew Stahl MD : 1970 BED: DIS: 10/08/2023 SPEC #: [id number] RECD: 10/12/23 07:46 STATUS: DENNIS REJuana #: [id number] THERESA: 10/08/23 14:[address]: Matthew Stahl DEPT: SURGICAL PATHOLOGY RECD BY: Romana Douglass ENTERED: 10/12/23 07:48 SP TYPE: Lesion OTHR DR: Dr. Lucy Pal MD Tissues: Skin of neck, NOS Skin of chest Skin of neck, NOS Skin of arm Procedures: Surgery Specimen Level IV HEADER OPERATION: Excision of lesion x4 PRE-OP DIAGNOSIS: Neck TISSUE SUBMITTED: A - Neck mole, B - Right chest lesion, C - Back of neck left side, D - Left arm lesion MICROSCOPIC DIAGNOSIS A. Neck lesion, excisional biopsy: Intradermal nevus. B. Right chest lesion, excisional biopsy: Intradermal nevus. C. Back of neck, left side, lesion, excisional biopsy: Intradermal nevus. D. Left arm lesion, excisional biopsy: Dermatofibroma. See comment. SJ:rg 10/13/2023 COMMENT D. Immunohistochemistry ([id number]) supports the above diagnosis. This case has been reviewed in consultation with Dr. Hollingsworth who concurs with the above diagnosis. MICROSCOPIC DESCRIPTION Slides are reviewed. GROSS DESCRIPTION A - Received in fixative is one container labeled with the patient's name and designated neck mole. The specimen consists of a piece of mathis-white skin ellipse measuring 1.2 x 0.7 cm and up to 0.6 cm in thickness. A brown nodule is present on the surface measuring 0.6 cm in diameter. The specimen is inked, serially sectioned and submitted entirely in one cassette. B - Received in fixative is one container labeled with the patient's name and designated right chest lesion. The specimen consists of a polypoid piece of mathis-brown skin measuring 0.9 x 0.6 x 0.6 cm. The specimen is inked, bisected and submitted entirely in one cassette. C - Received in fixative is one container labeled with the patient's name and designated back of neck left side. The specimen consists of a piece of mathis-brown skin measuring 0.8 x 0.5 x 0.5 cm. The specimen is inked, bisected and submitted entirely in one cassette. D - Received in fixative is one container labeled with the patient's name and designated left arm lesion. The specimen consists of a piece of mathis-white skin ellipse measuring 1.2 x 0.6 cm and up to 0.4 cm in thickness. The specimen is inked, serially sectioned and submitted entirely in one cassette. / SJ:rg 10/12/2023 TC:1 CPT: 59365 x4
== END | disposition home or self-care (01) ==
LOC: LABSPEC 16:21
PROVIDERS: PCP Internal Medicine; Referring Provider Surgery; Visit Provider Surgery
DX: D23.62 Other benign neoplasm of skin of left upper limb, including shoulder (principal); D22.4 Melanocytic nevi of scalp and neck
CPT/HCPCS: 88305; 88341; 88342

== ENCOUNTER → 2023-11-17 | Outpatient (CLI) | payer BC, SELFPAY ==
--- NOTE | 2023-11-17 | LES_PTH ---
PATHOLOGY RESULTS PATIENT: UR RESENDEZ LOC: [facility] U#:[id number] AGE/SX: 53/F ROOM: RE11/17/[address]: Dr. Matthew Stahl MD : 1970 BED: DIS: 11/17/2023 SPEC #: [id number] RECD: 11/17/23 12:53 STATUS: DENNIS REJuana #: [id number] THERESA: 11/17/23 00:[address]: Matthew Stahl DEPT: SURGICAL PATHOLOGY RECD BY: Charli Tejada ENTERED: 11/17/23 12:54 SP TYPE: Lesion OTHR DR: Dr. Lucy Pal MD Tissues: Skin of face, NOS Procedures: Surgery Specimen Level IV HEADER OPERATION: Shave biopsy of left eyebrow mole PRE-OP DIAGNOSIS: Left eyebrow mole TISSUE SUBMITTED: Left eyebrow mole MICROSCOPIC DIAGNOSIS Left eyebrow mole, shave biopsy: Intradermal nevus. SJ:sunday 11/18/2023 MICROSCOPIC DESCRIPTION Slides are reviewed. GROSS DESCRIPTION Received in fixative is one container labeled with the patient's name and designated left eyebrow mole. The specimen consists of a piece of mathis-white skin measuring 0.3 x 0.2 x 0.1 cm. The entire specimen is submitted in one cassette. / MUSA:sunday 11/17/2023 TC:1 CPT: 12560
== END | disposition home or self-care (01) ==
PROVIDERS: PCP Internal Medicine; Referring Provider Surgery; Visit Provider Surgery
DX: D22.39 Melanocytic nevi of other parts of face (principal)
CPT/HCPCS: 88305

== ENCOUNTER → 2024-04-28 | Outpatient (CLI) | payer BC, SELFPAY ==
[2024-04-28 12:42] LABS: Hematocrit 38.7 % (37-47); Mean Corp Hgb Conc 33.6 g/dL (32-36); Mean Corpuscular Volume 89.4 fL (81-99); Red Blood Count 4.33 M/mm3 (4.2-5.4); White Blood Count 9.9 K/mm3 (4.4-11.0)
[2024-04-28 12:43] LABS: Mean Platelet Vol. 9.6 fl (6.2-12.0); Platelet Count 314 K/mm3 (150-450); RBC Distribution Width CV 13.4 % (11.6-14.6); RBC Distribution Width SD 43.8 fl (35.1-43.9); Scan Indicated on CBC? Y/N NO
[2024-04-28 13:10] LABS: ALB/GLOB Ratio 0.9 RATIO (0.9-2.4); AST(SGOT) 24 U/L (15-37); Alanine Aminotransfer ALT/SGPT 31 U/L (13-56); Albumin, Serum 3.6 g/dL (3.2-5.0); Alkaline Phosphatase 60 U/L (45-117); Anion Gap 7 (5-15); BUN 12 mg/dL (7-18); BUN/Creat Ratio 16.7 RATIO (10-20); Calcium,Total 9.6 mg/dL (8.5-10.1); Chloride 103 mmol/L (98-107); Cholesterol 154 mg/dL (200); Creatinine, Serum 0.72 mg/dL (0.55-1.02); EST Glomerular Filtration Rate 91 mL/min (>60); Est Glom Filt Rate - Afr Amer 110 mL/min (>60); Globulin 3.8 g/dL (2.2-4.2); Glucose 118 mg/dL (74-106); High Density Lipoprotein 51 mg/dL; Potassium 3.7 mmol/L (3.5-5.1); Protein, Total 7.4 g/dL (6.4-8.2); Sodium Level 139 mmol/L (136-145); Triglycerides 146 mg/dL; Very Low Density Lipoprotein 29 mg/dL (5-40)
[2024-04-28 13:11] LABS: Hemoglobin A1c 7.2 % (3.8-5.6)
[2024-04-28 13:16] LABS: Microalbumin,Random Urine 9.3 mg/L (NO RANGE EST.); Microalbumin:Creatinine Ratio 5.3 mg/g CRE (<30 mg/g CRE)
== END | disposition home or self-care (01) ==
LOC: LAB 12:03
PROVIDERS: PCP Internal Medicine; Referring Provider Internal Medicine; Visit Provider Internal Medicine
DX: I10 Essential (primary) hypertension (principal); E11.9 Type 2 diabetes mellitus without complications; Z13.220 Encounter for screening for lipoid disorders
CPT/HCPCS: 36415; 80053; 80061; 82043; 82570; 83036; 85027

== ENCOUNTER → 2025-01-11 | Outpatient (CLI) | payer BC, SELFPAY ==
[2025-01-11 14:15] LABS: ALB/GLOB Ratio 1.3 RATIO (0.9-2.4); AST(SGOT) 25 U/L (<=31); Alanine Aminotransfer ALT/SGPT 23 U/L (<=34); Albumin, Serum 4.2 g/dL (3.5-5.0); Alkaline Phosphatase 62 U/L (35-104); Anion Gap 13 (5-15); BUN 15 mg/dL (4-19); BUN/Creat Ratio 19.3 RATIO (10-20); Calcium,Total 9.7 mg/dL (7.6-11.0); Carbon Dioxide 24.1 mmol/L (21.0-32.0); Chloride 102 mmol/L (98-108); Creatinine, Serum 0.76 mg/dL (0.70-1.20); EST Glomerular Filtration Rate 95 (>60); Globulin 3.4 g/dL (2.2-4.2); Glucose 115 mg/dL (70-99); Potassium 3.9 mmol/L (3.3-5.1); Protein, Total 7.6 g/dL (5.9-8.4); Sodium Level 139 mmol/L (133-145); Total Bilirubin 0.32 mg/dL (0.00-1.30)
[2025-01-11 16:23] LABS: Hemoglobin A1c 7.8 % (<=5.6)
== END | disposition home or self-care (01) ==
LOC: LAB 12:37
PROVIDERS: PCP Internal Medicine; Referring Provider Internal Medicine; Visit Provider Internal Medicine
DX: E11.9 Type 2 diabetes mellitus without complications (principal); I10 Essential (primary) hypertension
CPT/HCPCS: 36415; 80053; 83036

== ENCOUNTER 2025-03-07 14:30 | Outpatient (RCR) | payer BC, SELFPAY | END 2025-03-10 23:59 | LOC: NS 14:30 | PROVIDERS: PCP Internal Medicine; Referring Provider Internal Medicine; Visit Provider Internal Medicine | DX: Z71.3 Dietary counseling and surveillance (principal); E11.9 Type 2 diabetes mellitus without complications | CPT/HCPCS: 97802; 97803 ==

== ENCOUNTER 2025-05-09 10:19 | Outpatient (RCR) | payer BC, SELFPAY | END 2025-05-10 20:40 | disposition home or self-care (01) | LOC: LAB 10:19 | PROVIDERS: PCP Internal Medicine; Referring Provider Internal Medicine; Visit Provider Internal Medicine | DX: E11.9 Type 2 diabetes mellitus without complications (principal); I10 Essential (primary) hypertension | CPT/HCPCS: 36415; 83036 ==

== ENCOUNTER → 2025-09-05 | Outpatient (CLI) | payer BC, SELFPAY ==
--- NOTE | 2025-09-05 13:42 | BI_ITS ---
EXAM: SCRN MAMM (CAD)W/TIMMY BILAT DATE: 09/05/2025 CLINICAL HISTORY: F, Age 54 y/o , SCREEN Aunt with breast cancer. TECHNIQUE: Procedure Code: BISMWCADBTOM Modality: MG Procedure: SCRN MAMM (CAD)W/TIMMY BILAT COMPARISON: Prior exam(s) dated June 04, 2023.. FINDINGS: TISSUE DENSITY: There are scattered areas of fibroglandular density. Bilateral Breast Mammographic Findings: No significant masses, calcifications or other abnormalities are identified. Stable scattered bilateral microcalcifications. No focal cluster is seen. No suspicious masses, areas of developing architectural distortion, or suspicious calcifications. There has been no significant interval change. BI/SCRN MAMM (CAD)W/TIMMY BILAT IMPRESSION: Stable bilateral screening mammogram. OVERALL FINAL ASSESSMENT BI-RADS 2: BENIGN RECOMMENDATION: Routine annual follow-up in 1 Year Additional Recommendation none A letter with findings and recommendations will be mailed to the patient. Reading Location: [place] [address]
== END | disposition home or self-care (01) ==
LOC: OPBI 13:41
PROVIDERS: PCP Internal Medicine; Referring Provider Internal Medicine; Visit Provider Internal Medicine
DX: Z12.31 Encounter for screening mammogram for malignant neoplasm of breast (principal); Z80.3 Family history of malignant neoplasm of breast
CPT/HCPCS: 77063; 77067